=== PATIENT | female | born 1940 | race African-American/Black ===

== ENCOUNTER 2019-04-14 14:41 | Emergency (ER) | payer OTHER ==
[~2019-04-14] VITALS: Ht 149.9 cm; Wt 62.1 kg
[~2019-04-14 14:41] MED LIST: ALBUTEROL2.5 MG/31 IH; ASPIRIN EC325 M1 PO; COMBIVENT INH; DILTIAZEM 24HR180 MG PO; PREDNISONE 20 M20 M1 PO; SIMVASTATIN40 MG PO; VITAMIN D1000 UNI1 PO
[2019-04-14] MEDS ORDERED: NORCO 5-325 TA1 EAC1 PO (18:12)
[2019-04-14 18:48] VITALS: BP 120/65
== END 2019-04-14 18:49 | disposition home or self-care (01) ==
LOC: ER 14:41
DX: S82.142A Displaced bicondylar fracture of left tibia, initial encounter for closed fracture (principal); J45.909 Unspecified asthma, uncomplicated; I25.10 Atherosclerotic heart disease of native coronary artery without angina pectoris; I10 Essential (primary) hypertension; K21.9 Gastro-esophageal reflux disease without esophagitis; M81.0 Age-related osteoporosis without current pathological fracture; E78.00 Pure hypercholesterolemia, unspecified; E11.9 Type 2 diabetes mellitus without complications; M19.90 Unspecified osteoarthritis, unspecified site; Z87.891 Personal history of nicotine dependence; W18.39XA Other fall on same level, initial encounter; Y92.89 Other specified places as the place of occurrence of the external cause; Y93.89 Activity, other specified; Y99.8 Other external cause status